=== PATIENT | male | born 2000 | race African-American/Black ===

== ENCOUNTER 2020-11-15 10:46 | Inpatient (IN) | payer OTHER ==
[~2020-11-15] VITALS: Ht 185.4 cm; Wt 111.0 kg
[2020-11-15 11:20] LABS: HEMATOCRIT 46.1 % (42.0-52.0); HEMOGLOBIN 16.1 g/dl (13.5-17.5); MEAN CORPUSCULAR HGB CONC 34.9 g/dl (32.0-36.5); MEAN CORPUSCULAR VOLUME 83.1 fl (80.0-96.0); PLATELET COUNT, AUTOMATED 244 10^3/uL (150-450); RED BLOOD COUNT 5.55 10^6/uL (4.30-6.10); WHITE BLOOD COUNT 5.4 10^3/uL (4.0-10.0)
[2020-11-15 11:41] LABS: AMPHETAMINES LEVEL URINE NEGATIVE (NEGATIVE); BARBITURATES URINE NEGATIVE (NEGATIVE); BENZODIAZEPINES URINE NEGATIVE (NEGATIVE); CANNABINOIDS URINE NEGATIVE (NEGATIVE); COCAINE METABOLITE URINE NEGATIVE (NEGATIVE); METHADONE URINE NEGATIVE (NEGATIVE); OPIATES URINE NEGATIVE (NEGATIVE); PHENCYCLIDINE URINE NEGATIVE (NEGATIVE)
[2020-11-15 11:52] LABS: ACETAMINOPHEN LEVEL < 2.0 UG/ML (10.0-30.0); ALBUMIN 4.5 GM/DL (3.2-5.2); ALT/SGPT 37 U/L (12-78); BILIRUBIN,DIRECT 0.2 MG/DL (0.0-0.2); BILIRUBIN,TOTAL 0.8 MG/DL (0.2-1.0); BLOOD UREA NITROGEN 10 MG/DL (7-18); CALCIUM LEVEL 9.4 MG/DL (8.5-10.1); CARBON DIOXIDE LEVEL 27 MEQ/L (21-32); CHLORIDE LEVEL 103 MEQ/L (98-107); ETHYL ALCOHOL (ETHANOL) 0.003 % (0.000-0.010); GLUCOSE, FASTING 81 MG/DL (70-100); POTASSIUM SERUM 3.7 MEQ/L (3.5-5.1); SALICYLATE LEVEL < 1.7 MG/DL (5.0-30.0); SODIUM LEVEL 138 MEQ/L (136-145); TOTAL PROTEIN 8.1 GM/DL (6.4-8.2)
[2020-11-15 13:27] LABS: RSV AMPLIFICATION NEGATIVE (NEGATIVE)
[2020-11-15] MEDS ORDERED: MAALOX 30 ML SUSP *UDC PO PRN (15:00)
[2020-11-15] MEDS ORDERED: MOM 30ML SUSPENSION UDC PO PRN (15:00)
[2020-11-15 17:00] VITALS: BP 152/95
[2020-11-15] MEDS: ACETAMINOPHEN TAB 650MG DOSE (2X325MG) PO PRN (18:42)
[2020-11-15] MEDS ORDERED: ONDANSETRON 4 MG ORAL DISINTEGRATING TAB PO ONE (19:15)
[2020-11-15] MEDS ORDERED: ACETAMINOPHEN TAB 650MG DOSE (2X325MG) PO ONE (19:15)
[2020-11-15 20:21] VITALS: BP 152/95
--- NOTE | 2020-11-15 20:55 | REPVR ---
PROCEDURE INFORMATION: Exam: CT Head Without Contrast Exam date and time: 11/15/2020 8:37 PM Age: 20 years old Clinical indication: Pain; Headache; Additional info: Headache with n/v, very intense headache TECHNIQUE: Imaging protocol: Computed tomography of the head without contrast. Radiation optimization: All CT scans at this facility use at least one of these dose optimization techniques: automated exposure control; mA and/or kV adjustment per patient size (includes targeted exams where dose is matched to clinical indication); or iterative reconstruction. COMPARISON: No relevant prior studies available. FINDINGS: Brain: Normal. No hemorrhage. Unremarkable white matter. No mass effect. Cerebral ventricles: No ventriculomegaly. Bones/joints: Unremarkable. No acute fracture. Paranasal sinuses: Visualized sinuses are unremarkable. No fluid levels. Mastoid air cells: Visualized mastoid air cells are well aerated. Soft tissues: Unremarkable. IMPRESSION: No acute intracranial abnormality. Electronically signed by: Freddie Polo On 11/15/2020 20:55:09 PM
[2020-11-16 06:40] VITALS: BP 124/80
[2020-11-16] MEDS ORDERED: ESCITALOPRAM OXALATE 5MG TABLET (LEXAPRO) PO ONE (11:00)
[2020-11-16] MEDS: hydrOXYzine 50 MG TAB PO SCH ×2 (11:54→18:01)
--- NOTE | 2020-11-16 12:45 | HPEPDOC ---
[facility] Medical History & Physical Date of Admission Nov 16, 2020 Date of Service: Nov 16, 2020 History and Physical CHIEF COMPLAINT: Medical evaluation HISTORY OF PRESENT ILLNESS: Is a 20-year-old male known past medical history admitted to the inpatient mental health unit for suicidal ideations. Patient had visited his family and came back to [place] he is in the [employer] and felt trapped and wanted to kill himself.I am asked to provide a medical assessment of patient admitted to the psychiatric unit. My assessment is limited to medical problems and does not address any psychiatric problems which is deferred to the in-house psychiatrist. Patient has no medical problems and no complaints at this time. Overnight patient did have a headache and was given Tylenol which helped with his headache. PAST MEDICAL/SURGICAL HISTORY: Denies any SOCIAL HISTORY: Denies alcohol use Denies tobacco use Denies illicit drug use FAMILY HISTORY: Reviewed and none contributory to this admission ALLERGIES: Please see below. REVIEW OF SYSTEMS: 10 point review of systems complete all negative otherwise stated in HPI HOME MEDICATIONS: Please see below. PHYSICAL EXAMINATION: Constitutional: Awake and alert, in no apparent distress ENT: Sclera are clear. Mucosa is moist. Respiratory: Lungs CTA bilaterally. No respiratory distress. No use of accessory muscles. Cardiovascular: RRR S1 and S2 are normal, no murmur Gastrointestinal: Abdomen is soft, non distended, non tender, BS present. Musculoskeletal: No lower extremity edema. Neurologic: No focal neurological deficit. Mental Status: A&O x3, normal affect Skin: Warm, dry LABORATORY DATA: See below. IMAGING: See chart MICROBIOLOGY: Please see below. ASSESSMENT/PLAN Medical evaluation for 20-year-old male was admitted to the inpatient mental health unit for suicidal ideations # Headache: Sounds like a tension headache related to stress. Tylenol helps. Continue Tylenol when necessary. Attempt meditation and yoga. # Elevated blood pressure without diagnosis of hypertension: Could be related to tension and stress. Left cell modifications discussed with patient. Follow-up with PCP. No need for antihypertensive medications at this time. [facility] Vital Signs Vital Signs Date Time Temp Pulse Resp B/P (MAP) Pulse Ox O2 Delivery O2 Flow Rate FiO2 11/16/20 06:40 98.4 84 16 124/80 (95) 99 Room Air Home Medications No Active Prescriptions or Reported Meds Allergies Coded Allergies: No Known Allergies (Unverified , 11/15/20) A-FIB/CHADSVASC A-FIB History Current/History of A-Fib/PAF?: No YOUSEF,YENI Jospeh MD Nov 16, 2020 12:45
--- NOTE | 2020-11-16 13:55 | MHHPEPDOC ---
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 He went into [facility] on a walk-in bases reporting his depressive symptoms. He reports that he has been feeling depressed since August after he visited his family and returned to [place]. He states that he has been planning to hang himself or combine household liquids like bleach and ammonia. He reports sadness, depression and suicidal ideation and planning for the last two weeks. He states that he has a strained relationship with his father. The patient is the youngest of 3 boys and his two older brothers did not graduate and his father wanted more of his sons, including him. He reports that he is sending money to his father who recently lost his job, he also broke up with his girlfriend while he was in [place] and he doesn't know what the status of the relationship is now, he has a brother that had a daughter but can't afford to care for the child. He states that he is overextending himself sending money to his family. Psychiatric Review of Systems Depression (2 or more weeks): depressed mood, anhedonia, insomnia/hypersomnia (sleeping less than 3 hours a night), feelings of worthlesness, decreased energy, difficulty concentrating, appetite changes, suicidal thoughts Radha (4 or more days of): denies Psychosis: denies PTSD: denies Anxiety: situational anxiety, stressor related anxiety Past Psychiatric History Previous Psychiatric Diagnosis: Denies Previous Psychiatric Admissions: This is first Suicide Attempts: thoughts to overdose in October but was interrupted Psychiatric Follow-up: [facility] Psychiatric medications: None Past Medical History Medical Problems Reports back pain due to lifting incident, doing physical therapy No surgeries No known drug allergies Head Injury: No Seizures: No Hospitalizations: No Surgeries: No Family Medical/Psychiatric HX Medical Problems Mother had cancer Grandmother with Diabetes Brother with anxiety Both brothers with substance use disorder Psychiatric Disorders: Yes Addiction: Yes Suicide Attemps/Completions: No Addiction History denies Social History Childhood: Born in [place], reports that his childhood was "normal" States that if he had applied himself at school he could have done better Abuse/Trauma: states that for a short time he was bullied but had a growth spurt Current Living Situation: Lives alone Education: High School Graduate Employment: Social Support: Reports that his supports are limited in [facility] - Boss treats him poorly, work is menial at times and he doesn't like it, worries about his family, due to chronic back pain the arduous tasks at work is making him depressed Legal: None Marital: Single, never Mental Status Examination General Appearance: well groomed, appears stated age, hospital scubs/clothing, other (wearing eyeglasses) Build: tall Demeanor: withdrawn, guarded Eye Contact: average Activity: average, other (reporting low energy, doesn't play video games as often now) Behavior: cooperative, withdrawn Speech: clear Mood: depressed Affect: constricted Thought Process: logical/linear Thought Content (Delusions): none reported Thought Content (Other): none reported Thought Content (Aggressive): none reported Perception (Hallucinations): none reported Perception (Other): none reported Cognition (Impairment of): none reported Cognition(Intelligence Est.): average Oriented: Awake, Alert, Oriented times three Insight: fair Judgment: Fair Psychosis: Denies Diagnoses Major Depressive Disorder, Single Episode, Moderate A-FIB/CHADSVASC A-FIB History Current/History of A-Fib/PAF?: No Current PO Anticoag Therapy: No Assessment 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 He went into [facility] on a walk-in bases reporting his depressive symptoms. He reports that he has been feeling depressed since August after he visited his family and returned to [place]. He has been planning a suicide by either hanging or drinking household liquids. He states that his stressors are his relationship with his father, not being with his family, work stress, his boss treating him poorly, and poor supports in [place]. He reports sadness, depression, poor sleep, poor appetite, poor energy and concentration, anhedonia, feelings of hopelessness and suicidality with planning. Patient is agreeable to start an SSRI, will start patient on Escitalopram for depression and Hydroxyzine for anxiety. Will discharge patient when he contracts for safety, has a solid and safe discharge plan, when he is stable. Initial Treatment Plan 1. Patient was admitted on a [9.39] status. 2. Complete history was obtained. 3. With patients permission, family will be contacted and database will be expanded. 4. Patients medication regimen will be reviewed and changed accordingly. 5. Patient will be provided with protected environment. 6. Patient will be treated with individual, group, and milieu therapies. 7. Patient will receive supportive psych-education. 8. Discharge planning will commence immediately. 9. Outpatient follow-up treatment will be strongly recommended. 10. The initial treatment plan will focus initially on: * Depression. * Risk for suicide. ESTIMATED LENGTH OF STAY: 3-5 DAYS. TIME SPENT COUNSELING AND COORDINATING INITIAL CARE: 60 minutes. Vital Signs Vital Signs Date Time Temp Pulse Resp B/P (MAP) Pulse Ox O2 Delivery O2 Flow Rate FiO2 11/16/20 06:40 98.4 84 16 124/80 (95) 99 Room Air Medications No Active Prescriptions or Reported Meds Allergies Coded Allergies: No Known Allergies (Unverified , 11/15/20) VIKRAM GARCIA NP Nov 16, 2020 13:55
[2020-11-16 18:13] VITALS: BP 134/75
[2020-11-16] MEDS: traZODone 50 MG TAB PO PRN (20:19)
[2020-11-17] MEDS: hydrOXYzine 50 MG TAB PO SCH ×4 (06:16→17:58)
[2020-11-17 06:50] VITALS: BP 138/72
[2020-11-17] MEDS: ESCITALOPRAM OXALATE 10 MG TAB (LEXAPRO) PO SCH (09:15)
[2020-11-17 16:18] VITALS: BP 149/78
--- NOTE | 2020-11-17 16:27 | MHIPNPDOC ---
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 He went into [facility] on a walk-in bases reporting his depressive symptoms and a suicide plan for two weeks. He reports that he has been feeling depressed since August after he visited his family and returned to [place]. He states that he has been planning to hang himself or combine household liquids like bleach and ammonia. He reports sadness, depression and suicidal ideation and planning for the last two weeks. He states that he has a strained relationship with his father. The patient is the youngest of 3 boys and his two older brothers did not graduate and his father wanted more of his sons, including him. He reports that he is sending money to his father who recently lost his job, he also broke up with his girlfriend while he was in [place] and he doesn't know what the status of the relationship is now, he has a brother that had a daughter but can't afford to care for the child. He states that he is overextending himself sending money to his family. VITAL SIGNS: See below. CURRENT MEDICATIONS: See below. 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 Speech: Is low tone, volume, rate. His speech is impoverished Language skills are intact Thought processes including: linear and goal oriented Thought content: depression, anxiety, fleeting suicidal ideation, no homicidal ideation Abstract reasoning, and computation: fair. Description of associations: none Description of abnormal or psychotic thoughts: none, patient denies Judgment: fair Insight: fair Orientation: alert and oriented to person, place, time and situation Recent and remote memory: intact Attention span and concentration: fair Language: expansive Fund of knowledge: average Mood: depressed. Affect: flat/blunted DIAGNOSES: Major Depressive Disorder, Single Episode, Moderate ASSESSMENT: Patient is found in his room sleeping, he is withdrawn and isolative. His eye contact and gaze is poor. He denies that he is currently having suicidal thoughts. States that he would like to be discharged today, wants to be able to facetime with his family, have a weekend to rest before he starts work on Saturday. Patient is not engaged in the interview. He is not forthcoming with his mood, states he feels "good." But he appears to be quite depressed. Patient stated that he and his girlfriend had a fight while he was in [place] visiting, he reports missing his family a lot. His father lost his job recently and his brother had a baby therefore he has been sending money to his family to help them financially and he states that this is causing his own financial trouble. Reinforced with patient that I am not comfortable with his discharge today because he does not have any improvement in his mood or affect. [facility] is closed tomorrow and Saturday, this may be patient's attempt to not stay the weekend but patient's planning is quite lethal and with his being very tired with his [employer] of [employer], poor supports in the area, reporting no friends and having increased financial troubles - I believe him to be still at high risk. MANAGEMENT PLAN: Continue all medications as ordered, patient will be discharged next week TIME SPENT: 25 minutes. Vital Signs Vital Signs Date Time Temp Pulse Resp B/P (MAP) Pulse Ox O2 Delivery O2 Flow Rate FiO2 11/17/20 06:50 98.3 76 20 138/72 (94) 98 Room Air Current Medications Current Medications Medications (Trade) Dose Ordered Sig/Oh Route PRN Reason Start Time Stop Time Status Last Admin Dose Admin Acetaminophen (Tylenol Tab) 650 mg Q6HP PRN PO HEADACHE or DISCOMFORT 11/15/20 15:00 11/15/20 18:42 Al Hydrox/Mg Hydrox/Simethicone (Mylanta) 30 ml Q4HP PRN PO HEARTBURN/INDIGESTION 11/15/20 15:00 Escitalopram Oxalate (Lexapro) 10 mg DAILY PO 11/17/20 09:00 11/17/20 09:15 Home Med (Med Rec Complete!) ASDIRECTED XX 11/15/20 15:15 11/15/20 15:03 DC Hydroxyzine HCl (Atarax) 50 mg Q6H PO 11/16/20 12:00 11/17/20 06:16 Magnesium Hydroxide (Milk Of Magnesia) 30 ml DAILYPRN PRN PO CONSTIPATION 11/15/20 15:00 Olanzapine (ZyPREXA ZYDIS) 5 mg Q4HP PRN PO AGITATION 11/15/20 15:00 Trazodone HCl (Desyrel) 50 mg QHSP PRN PO INSOMNIA 11/15/20 15:00 11/16/20 20:19 Allergies Coded Allergies: No Known Allergies (Unverified , 11/15/20) VIKRAM GARCIA NP Nov 17, 2020 11:05
[2020-11-17] MEDS: OLANZapine ORAL DISINTEGRATING TAB 5MG PO PRN (17:04)
[2020-11-17] MEDS: traZODone 50 MG TAB PO PRN (20:19)
[2020-11-17] MEDS: ACETAMINOPHEN TAB 650MG DOSE (2X325MG) PO PRN (20:21)
[2020-11-18] MEDS: hydrOXYzine 50 MG TAB PO SCH ×4 (05:42→17:50)
[2020-11-18] MEDS: ESCITALOPRAM OXALATE 10 MG TAB (LEXAPRO) PO SCH ×2 (09:00→17:50)
--- NOTE | 2020-11-18 13:15 | MHIPNPDOC ---
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 He went into [facility] on a walk-in bases reporting his depressive symptoms and a suicide plan for two weeks. He reports that he has been feeling depressed since August after he visited his family and returned to [place]. He states that he has been planning to hang himself or combine household liquids like bleach and ammonia. He reports sadness, depression and suicidal ideation and planning for the last two weeks. He states that he has a strained relationship with his father. The patient is the youngest of 3 boys and his two older brothers did not graduate and his father wanted more of his sons, including him. He reports that he is sending money to his father who recently lost his job, he also broke up with his girlfriend while he was in [place] and he doesn't know what the status of the relationship is now, he has a brother that had a daughter but can't afford to care for the child. He states that he is overextending himself sending money to his family. VITAL SIGNS: See below. CURRENT MEDICATIONS: See below. 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 Speech: Is low tone, volume, rate. His speech is impoverished Language skills are intact Thought processes including: linear and goal oriented Thought content: depression, anxiety, fleeting suicidal ideation, no homicidal ideation Abstract reasoning, and computation: fair. Description of associations: none Description of abnormal or psychotic thoughts: none, patient denies Judgment: fair Insight: fair Orientation: alert and oriented to person, place, time and situation Recent and remote memory: intact Attention span and concentration: fair Language: expansive Fund of knowledge: average Mood: depressed. Affect: flat/blunted DIAGNOSES: Major Depressive Disorder, Single Episode, Moderate Social Anxiety ASSESSMENT: Patient reports depression 7/10, denies anxiety, denies currently suicidality/homicidality. He is denying psychotic symptoms, no delusions, AH/VH, manic symptoms. He is withdrawn, isolative to his room. He reports that he has attended some groups but as social anxiety and that he will attend groups to avoid being bored. Patient's affect is flat and blunted. He reports that his biggest stressor is missing his family, wanting to be home, stress over his finances that the amount of money he is sending back home. States that he gets reprimanded because of the length of his hair but can't afford to pay for the hair cut. He states that he is unhappy in the [employer] and wants to return home. Short therapy discussion regarding the need to help his family vs allowing his family to work on their own struggles, allowing him to catch up on his bills. MANAGEMENT PLAN: Continue medications as ordered, patient is not stable for discharge today, [facility] is closed on Saturday, will consider discharge on Saturday TIME SPENT: 25 minutes. Vital Signs Vital Signs Date Time Temp Pulse Resp B/P (MAP) Pulse Ox O2 Delivery O2 Flow Rate FiO2 11/17/20 16:18 98.9 99 18 149/78 (101) 100 Room Air Current Medications Current Medications Medications (Trade) Dose Ordered Sig/Oh Route PRN Reason Start Time Stop Time Status Last Admin Dose Admin Acetaminophen (Tylenol Tab) 650 mg Q6HP PRN PO HEADACHE or DISCOMFORT 11/15/20 15:00 11/17/20 20:21 Al Hydrox/Mg Hydrox/Simethicone (Mylanta) 30 ml Q4HP PRN PO HEARTBURN/INDIGESTION 11/15/20 15:00 Escitalopram Oxalate (Lexapro) 10 mg DAILY PO 11/17/20 09:00 11/17/20 09:15 Home Med (Med Rec Complete!) ASDIRECTED XX 11/15/20 15:15 11/15/20 15:03 DC Hydroxyzine HCl (Atarax) 50 mg Q6H PO 11/16/20 12:00 11/18/20 12:26 Magnesium Hydroxide (Milk Of Magnesia) 30 ml DAILYPRN PRN PO CONSTIPATION 11/15/20 15:00 Olanzapine (ZyPREXA ZYDIS) 5 mg Q4HP PRN PO AGITATION 11/15/20 15:00 11/17/20 17:04 Trazodone HCl (Desyrel) 50 mg QHSP PRN PO INSOMNIA 11/15/20 15:00 11/17/20 20:19 Allergies Coded Allergies: No Known Allergies (Unverified , 11/15/20) VIKRAM GARCIA NP Nov 18, 2020 13:15
[2020-11-18 19:15] VITALS: BP 132/76
[2020-11-18] MEDS: traZODone 50 MG TAB PO PRN (20:51)
[2020-11-18] MEDS: OLANZapine ORAL DISINTEGRATING TAB 5MG PO PRN (20:51)
[2020-11-19] MEDS: hydrOXYzine 50 MG TAB PO SCH ×4 (06:08→17:31)
[2020-11-19 06:38] VITALS: BP 120/56
[2020-11-19] MEDS: ESCITALOPRAM OXALATE 10 MG TAB (LEXAPRO) PO SCH (09:41)
[2020-11-19 18:34] VITALS: BP 147/84
[2020-11-19] MEDS: traZODone 50 MG TAB PO PRN (20:19)
[2020-11-19] MEDS: OLANZapine ORAL DISINTEGRATING TAB 5MG PO PRN (20:19)
[2020-11-20] MEDS: hydrOXYzine 50 MG TAB PO SCH ×4 (06:08→18:25)
[2020-11-20 06:35] VITALS: BP 119/63
[2020-11-20] MEDS: ESCITALOPRAM OXALATE 10 MG TAB (LEXAPRO) PO SCH (08:46)
[2020-11-20 18:39] VITALS: BP 135/72
[2020-11-21] MEDS: hydrOXYzine 50 MG TAB PO SCH ×4 (06:08→18:25)
[2020-11-21 06:58] VITALS: BP 118/67
[2020-11-21] MEDS: ESCITALOPRAM OXALATE 10 MG TAB (LEXAPRO) PO SCH (08:36)
[2020-11-21] MEDS ORDERED: TRAZ-252 PO (09:16)
[2020-11-21] MEDS ORDERED: HYDR50TA70 PO (09:16)
[2020-11-21] MEDS ORDERED: LEXA1TAB PO (09:16)
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
[2020-11-21 16:53] VITALS: BP 142/89
[2020-11-21] MEDS: traZODone 50 MG TAB PO PRN (21:11)
[2020-11-21] MEDS: OLANZapine ORAL DISINTEGRATING TAB 5MG PO PRN (21:12)
[2020-11-22] MEDS: hydrOXYzine 50 MG TAB PO SCH ×4 (06:13→17:59)
[2020-11-22 06:46] VITALS: BP 117/71
[2020-11-22] MEDS: OLANZapine ORAL DISINTEGRATING TAB 5MG PO PRN ×2 (08:20→21:43)
[2020-11-22] MEDS: ESCITALOPRAM OXALATE 10 MG TAB (LEXAPRO) PO SCH (08:21)
--- NOTE | 2020-11-22 09:27 | MHIPN ---
[facility] PROGRESS NOTE DATE: 11/19/2020 VITAL SIGNS: Blood pressure 120/56, temperature 98.1, pulse 72. CHIEF COMPLAINT: Says feels okay. SUBJECTIVE: Seen for followup, this is via video assessment, we are doing it because of the pandemic. He says he has been doing okay, has a hard time elaborating on that, however. He does say sleep is a bit better, and that he has been eating better as well. Suggests contact with his father, indicates father is mostly angry. Patient has been struggling for the last couple of months at least. MENTAL STATUS EXAMINATION: He is neat, cooperative, appears a bit tired, we just woke him from a nap. He is coherent. Affect is restricted in range. Vague on suicidal thoughts, denies any firm plans. Currently no evidence of any psychosis. Cognition grossly intact. Judgment and insight remain compromised. ASSESSMENT: Major depressive disorder, single episode. Remains depressed, has been depressed possibly longer than anticipated. PLAN: Continue Lexapro 10 mg daily. Continue current observations, encourage participation in activities in the unit. Further recommendations will be made depending on the clinical picture.
--- NOTE | 2020-11-22 12:59 | MHIPNPDOC ---
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 He went into [facility] on a walk-in bases reporting his depressive symptoms and a suicide plan for two weeks. He reports that he has been feeling depressed since August after he visited his family and returned to [place]. He states that he has been planning to hang himself or combine household liquids like bleach and ammonia. He reports sadness, depression and suicidal ideation and planning for the last two weeks. He states that he has a strained relationship with his father. The patient is the youngest of 3 boys and his two older brothers did not graduate and his father wanted more of his sons, including him. He reports that he is sending money to his father who recently lost his job, he also broke up with his girlfriend while he was in [place] and he doesn't know what the status of the relationship is now, he has a brother that had a daughter but can't afford to care for the child. He states that he is overextending himself sending money to his family. VITAL SIGNS: See below. CURRENT MEDICATIONS: See below. 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 Speech: normal tone, volume, rate. Language skills are intact Thought processes including: linear and goal oriented Thought content: reports depression is less, less anxiety, denies suicidal ideation, no homicidal ideation Abstract reasoning, and computation: fair. Description of associations: none Description of abnormal or psychotic thoughts: none, patient denies Judgment: good Insight: good Orientation: alert and oriented to person, place, time and situation Recent and remote memory: intact Attention span and concentration: fair Language: expansive Fund of knowledge: average Mood: less depression Affect: constricted, but improved DIAGNOSES: Major Depressive Disorder, Single Episode, Moderate Social Anxiety ASSESSMENT: Patient is not being discharged today due to [facility] being cancelled due to weather. Patient reports continued improvement and no psychotic symptoms. Per staff patient has been doing well and that there are not issues with the patient. He is attending groups, visible in the milieu and he is social with peers. Will discharge tomorrow. MANAGEMENT PLAN: Continue medications as ordered, discharge on Saturday. Time Spent: 25 minutes Vital Signs Vital Signs Date Time Temp Pulse Resp B/P (MAP) Pulse Ox O2 Delivery O2 Flow Rate FiO2 11/22/20 06:46 98.1 52 16 117/71 (86) 98 Room Air Current Medications Current Medications Medications (Trade) Dose Ordered Sig/Oh Route PRN Reason Start Time Stop Time Status Last Admin Dose Admin Acetaminophen (Tylenol Tab) 650 mg Q6HP PRN PO HEADACHE or DISCOMFORT 11/15/20 15:00 11/17/20 20:21 Al Hydrox/Mg Hydrox/Simethicone (Mylanta) 30 ml Q4HP PRN PO HEARTBURN/INDIGESTION 11/15/20 15:00 Escitalopram Oxalate (Lexapro) 10 mg DAILY PO 11/17/20 09:00 11/22/20 08:21 Home Med (Med Rec Complete!) ASDIRECTED XX 11/15/20 15:15 11/15/20 15:03 DC Hydroxyzine HCl (Atarax) 50 mg Q6H PO 11/16/20 12:00 11/22/20 11:43 Magnesium Hydroxide (Milk Of Magnesia) 30 ml DAILYPRN PRN PO CONSTIPATION 11/15/20 15:00 Olanzapine (ZyPREXA ZYDIS) 5 mg Q4HP PRN PO AGITATION 11/15/20 15:00 11/22/20 08:20 Trazodone HCl (Desyrel) 50 mg QHSP PRN PO INSOMNIA 11/15/20 15:00 11/21/20 21:11 Allergies Coded Allergies: No Known Allergies (Unverified , 11/15/20) VIKRAM GARCIA NP Nov 22, 2020 12:59
[2020-11-22 16:17] VITALS: BP 135/83
[2020-11-22] MEDS: traZODone 50 MG TAB PO PRN (21:43)
[2020-11-23] MEDS: hydrOXYzine 50 MG TAB PO SCH ×3 (06:16→11:33)
[2020-11-23 06:27] VITALS: BP 160/85
[2020-11-23] MEDS: ESCITALOPRAM OXALATE 10 MG TAB (LEXAPRO) PO SCH (08:20)
--- NOTE | 2020-11-23 16:27 | MHDSPDOC ---
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 He went into [facility] on a walk-in bases reporting his depressive symptoms and a suicide plan for two weeks. He reports that he has been feeling depressed since August after he visited his family and returned to [place]. He states that he has been planning to hang himself or combine household liquids like bleach and ammonia. He reports sadness, depression and suicidal ideation and planning for the last two weeks. He states that he has a strained relationship with his father. The patient is the youngest of 3 boys and his two older brothers did not graduate and his father wanted more of his sons, including him. He reports that he is sending money to his father who recently lost his job, he also broke up with his girlfriend while he was in [place] and he doesn't know what the status of the relationship is now, he has a brother that had a daughter but can't afford to care for the child. He states that he is overextending himself sending money to his family. CONSULTANTS INVOLVED: See Medical H + P by Hospitalist TREATMENT AND PROGRESS ON THE UNIT: Patient was admitted to the [facility] on a 9.39 legal status he was afforded the following treatment modalities: 1) Individual Therapy 2) Group Therapy 3) Medication Management 4) Milieu Therapy 5) Safe Environment HOSPITAL COURSE: Patient is admitted to [facility] on a 939 legal status. He was started on Lexapro 10 mg, hydroxyzine 50 mg and trazodone 50 mg at bedtime is reporting depression and suicidal ideation to hang himself or combine household liquids to overdose on. Reports that his stressors are being away from his family who live in [place]. He is currently in the [employer] and does not like it ports that he had recently visited his family in August and since then he has been missing them while he was on leave. He also had a breakup of his girlfriend. Patient was initially very guarded, withdrawn and isolative to his room. Reporting that he has social anxiety is the end of his hospitalization. He was social with his peers, attended groups, states that he was attending groups to rid himself of the boredom at this time. He is reporting decreased depression, no suicidal ideation and he is stable for discharge today DISCHARGE ASSESSMENT: : In today's interview, patient is alert and oriented, pts dress is appropriate. Hygiene and grooming is well-kempt. Smiles on approach and is pleasant and engaged in the interview. Denies depression and anxiety. Denies suicidal and homicidal ideation, planning or intent. Denies and is not observed with eugene, psychotic symptoms of delusions, bizarre thinking, obsessions, paranoia, ruminations illogical thoughts, flight of ideas or having poor insight and judgement. Patient has normal mentation, declines further hospitalization on a voluntary status and meets criteria for discharge today. Patient encouraged to return to hospital if his symptoms worsen or change and encouraged to call unit if he/she/they needs to speak to provider for questions regarding medications or care. 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 Speech: normal tone, volume, rate. Language skills are intact Thought processes including: linear and goal oriented Thought content: reports depression is less, less anxiety, denies suicidal ideation, no homicidal ideation Abstract reasoning, and computation: fair. Description of associations: none Description of abnormal or psychotic thoughts: none, patient denies Judgment: good Insight: good Orientation: alert and oriented to person, place, time and situation Recent and remote memory: intact Attention span and concentration: fair Language: expansive Fund of knowledge: average Mood: less depression Affect: constricted, but improved MEDICATIONS ON DISCHARGE: See Medication Reconciliation PLAN/FOLLOWUP ARRANGEMENTS: [facility] The amount of time spent in the coordination of care for this patient was approximately 25 minutes. Vital Signs/I&Os Vital Signs Date Time Temp Pulse Resp B/P (MAP) Pulse Ox O2 Delivery O2 Flow Rate FiO2 11/23/20 06:27 98.4 72 17 160/85 (110) 11/22/20 16:17 98 Room Air Medications Scheduled Escitalopram Oxalate (Lexapro) 10 Mg Tablet, 10 MG PO DAILY for Depression, #7 Scheduled PRN Hydroxyzine HCl (Hydroxyzine HCl) 50 Mg Tablet, 50 MG PO BIDP PRN for ANXIETY, #14 Trazodone HCl (Trazodone HCl) 50 Mg Tablet, 50 MG PO QHSP PRN for INSOMNIA, #7 Allergies Coded Allergies: No Known Allergies (Unverified , 11/15/20) VIKRAM GARCIA NP Nov 23, 2020 16:27
== END 2020-11-23 12:40 | disposition home or self-care (01) | DRG 885 ==
LOC: M ED 10:46 → M ED INP 14:54 → M PSY 16:45
PROVIDERS: ADMIT Psychiatry & Neurology Psychiatry; ATTEND Psychiatry & Neurology Psychiatry
DX: F32.1 Major depressive disorder, single episode, moderate (principal); R45.851 Suicidal ideations; F41.8 Other specified anxiety disorders